=== PATIENT | male | born 1955 | race Caucasian/White ===

== ENCOUNTER → 2019-08-01 08:21 | Outpatient (BNVA) | payer BC, SELFPAY | PROVIDERS: Family Provider Family Medicine; PCP Family Medicine; Visit Provider Nurse Practitioner Family | DX: E78.5 Hyperlipidemia, unspecified (principal) | CPT/HCPCS: 80061; 80076; 84153 ==

== ENCOUNTER 2019-11-07 06:23 | Day surgery (SDC) | payer BC, SELFPAY ==
[2019-11-06 09:47] VITALS: BMI 30.2
[2019-11-07 06:35] VITALS: BP 138/88; PULSE 68; RESP 18; TEMP 36.2; O2SAT 96
[2019-11-07] MEDS: sodium chloride 0.9% 1,000 ML 30 ML IV (06:47)
--- NOTE | 2019-11-07 07:16 | ANES.PREANE2 ---
Pre-Anesthetic Assessment Pre-Anesthetic Assessment: Height/Weight: Height 1.75 m Weight 92.986 kg Temp Pulse Resp BP Pulse Ox 97.2 F L 68 18 138/88 96 11/07/19 06:35 11/07/19 06:35 11/07/19 06:35 11/07/19 06:35 11/07/19 06:35 Preop Diagnosis: Screening Proposed Procedure: Operation Date: 11/07/19 07:45 Proposed Procedures p [id number](Not Applicable) - Parish Michaels MD Was Beta Mal taken within 24 hours: Yes Last intake: Intake Last Liquid Date 11/06/19 Last Liquid Time 21:30 Last Solid Date 11/05/19 Social: Social History: No tobacco Exam: Pre-Anes Outpt Exam: alert, oriented x 3, clear to auscultation bilaterally and regular rate & rhythm Airway: Submandibular: WNL Cervical ROM: WNL MP: 2 Dentition: Full History/ROS: No significant history except as noted and No significant complaints Pulmonary: Pulmonary: SOB CV/HEM: CV/HEM: CAD and MA : : None reported Hepatic: Hepatic: None reported GI: GI: None reported Metabolic: Metabolic: None reported Musc/skel: Musc/skel: None reported Neuropsych: Neuropsych: None reported Anesthetic Plan: ASA status: 3 Anesthesia: Anesthesia Evaluation and MAC Risk of > 500 ml blood loss (7ml/kg in children): No Meds/Allergies Current Medications: Current Medications Generic Name Dose Route Start Last Admin Trade Name Freq PRN Reason Stop Dose Admin Sodium Chloride 1,000 mls @ 30 ml s/hr 11/07/19 06:30 11/07/19 06:47 Sodium Chloride 0.9% IV 11/08/19 06:29 30 mls/hr .Q24H ABDELRAHMAN Administration PFSH Anesthesia PFSH: Medical History (Updated 09/06/19 @ 06:52 by Parish Michaels MD) CAD (coronary artery disease) History of ST elevation myocardial infarction (STEMI) HTN (hypertension) Hyperlipidemia Surgical History Previous back surgery S/P cholecystectomy S/P PTCA (percutaneous transluminal coronary angioplasty) S/P shoulder surgery Left Family History Father S/P CABG (coronary artery bypass graft) Denies family history of Anesthesia complication Bleeding disorder Social History Smoking and tobacco status: former smoker Data Anesthesia Cardiac Studies: No Data to Display
--- NOTE | 2019-11-07 07:46 | W.PM.OPSFHP ---
Same Day Surgery H&P Indication for Procedure/HPI DATE OF PROCEDURE: November 07, 2019 CHIEF COMPLAINT/INDICATIONFOR SURGICAL PROCEDURE: colonoscopy PREOP DIAGNOSIS: Screening PLANNED PROCEDRUE: Operation Date: 11/07/19 07:45 Proposed Procedures p [id number]/Z12.11(Not Applicable) - Parish Michaels MD Medications/Allergies* Home Medications Medication Instructions Recorded Confirmed Type aspirin 81 mg tablet,delayed 81 mg PO DAILY 08/17/19 11/07/19 History release atorvastatin 80 mg tablet 80 mg PO DAILY 08/17/19 11/07/19 History metoprolol succinate 25 mg 12.5 mg PO DAILY 08/17/19 11/07/19 History tablet,extended release 24 hr Allergies/Adverse Reactions Allergy/AdvReac Type Severity Reaction Status Date / Time No Known Allergies Allergy Unverified 09/05/19 12:43 Current Medications: Generic Name Dose Route Start Last Admin Trade Name Freq PRN Reason Stop Dose Admin Sodium Chloride 1,000 mls @ 30 mls/hr 11/07/19 06:30 11/07/19 06:47 Sodium Chloride 0.9% IV 11/08/19 06:29 30 mls/hr .Q24H ABDELRAHMAN Administration Pertinent History/Comorbid Conditions* Medical History (Updated 09/06/19 @ 06:52 by Parish Michaels MD) CAD (coronary artery disease) History of ST elevation myocardial infarction (STEMI) HTN (hypertension) Hyperlipidemia Surgical History (Updated 09/05/19 @ 12:52 by Parish Michaels MD) Previous back surgery S/P cholecystectomy S/P PTCA (percutaneous transluminal coronary angioplasty) S/P shoulder surgery Left Family History (Updated 09/05/19 @ 12:44 by SHERWIN Salazar) S/P CABG (coronary artery bypass graft) Father Denies family history of Anesthesia complication Bleeding disorder Social History Smoking and tobacco status: former smoker Pertinent Exam Findings alert and oriented x 3 Recommendations Surgery/Procedure today Coding Level of Care Code Acute Watershed Program Manager for Patricia Mayorga
[2019-11-07 08:15] VITALS: BP 113/73; PULSE 83; RESP 18; TEMP 36.2; O2SAT 93
[2019-11-07 08:27] VITALS: BP 120/75; PULSE 79; RESP 18; O2SAT 94
[2019-11-07 08:37] VITALS: BP 109/66; PULSE 74; RESP 18; O2SAT 93
== END 2019-11-07 08:40 | disposition home or self-care (01) ==
PROVIDERS: PCP Nurse Practitioner Family; Visit Provider Surgery
PROC: 0DJD8ZZ Inspection of Lower Intestinal Tract, Via Natural or Artificial Opening Endoscopic (ICD-10-PCS; CPT 45378; principal; 2019-11-07 07:45)
DX: Z12.11 Encounter for screening for malignant neoplasm of colon (principal); D12.4 Benign neoplasm of descending colon; K64.8 Other hemorrhoids; Z79.82 Long term (current) use of aspirin; I25.10 Atherosclerotic heart disease of native coronary artery without angina pectoris; I10 Essential (primary) hypertension; E78.5 Hyperlipidemia, unspecified; Z87.891 Personal history of nicotine dependence; I25.2 Old myocardial infarction
CPT/HCPCS: 12345; 45380; 88305; J0171; J2704; J3490; J7030

== ENCOUNTER 2019-11-30 17:08 | Emergency (ER) | payer BC, SELFPAY ==
[2019-11-30 17:13] VITALS: BP 194/96; PULSE 71; RESP 14; TEMP 36.8; O2SAT 97; BMI 30.4
--- NOTE | 2019-11-30 19:30 | XRR_ITS ---
PROCEDURE INFORMATION: Exam: XR Chest, 1 View Exam date and time: 11/30/2019 7:45 PM Age: 64 years old Clinical indication: Chest pain; Type not specified; Prior surgery; Surgery type: Stents; Additional info: Chest pain x 2 weeks TECHNIQUE: Imaging protocol: XR of the chest Views: 1 view. COMPARISON: CR Chest 1 [place] [id number] 02/06/2018 5:20 AM FINDINGS: Lungs: Unremarkable. No consolidation. Pleural space: Unremarkable. No pleural effusion. No pneumothorax. Heart/Mediastinum: Unremarkable. No cardiomegaly. Bones/joints: Unremarkable. XR/XR chest 1V portable [id number] IMPRESSION: No acute findings.
--- NOTE | 2019-11-30 19:31 | ECG_ITS ---
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 Measurements Intervals [place] Rate: 63 P: 28 UT: 152 QRS: -7 QRSD: 91 T: 7 QT: 423 QTc: 434 Interpretive Statements SINUS RHYTHM Compared to ECG 11/30/2019 17:18:50 No significant changes Electronically Signed On 12-01-2019 19:04:06 CDT by Regina Howard M.D. [id number]
--- NOTE | 2019-11-30 20:14 | W.ED.CHESTPA ---
HPI - Chest Pain General: Chief Complaint: Chest Pain Stated Complaint: cp Time Seen by Provider: 11/30/19 19:56 History of Present Illness: HPI narrative: 64-year-old male comes in complaining of chest pain he states he has had intermittently for the last 2 weeks. He does not really notice any exacerbating or relieving factors. He got episodes last 2 to 3 minutes at a time he came in today because he was seen at his primary care doctor's office and a midlevel seen him he told him about the chest chest discomfort and they advised him to come in and be seen. He has not had any increasing level of symptoms is not been taking anything for it at home. He does have a history of coronary disease and had 2 overlapping stents placed in an ostial branch of the LAD a few years ago. He has not had any stress testing since then. 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 Onset (ago): week(s) (2 weeks) Timing of current episode: episodic Onset: during rest and during exertion Pain location: left chest Pain radiation: none Severity: moderate Quality: heaviness Relieving factors: nothing Exacerbating factors: nothing Associated symptoms: Reports no associated symptoms; Deny abdominal pain, dyspnea, fever(s), nausea or vomiting Treatment prior to arrival: aspirin Review of Systems Const: Denies: fever(s), chills, body aches, change in appetite, fatigue or malaise ENMT: Denies: throat pain, ear or mastoid pain, nasal discharge or nasal congestion Card: Denies: chest pain, edema, dyspnea on exertion or orthopnea Resp: Denies: dyspnea, productive cough or non-productive cough GI: Denies: abdominal pain, nausea, vomiting, hematemesis, coffee ground emesis, diarrhea, constipation, bloating, hematochezia or melena : Denies: flank pain, dysuria, urinary frequency or urinary urgency Skin/Breast: Denies: rash or pruritus PFSH ED PFSH: Medical History CAD (coronary artery disease) History of ST elevation myocardial infarction (STEMI) HTN (hypertension) Hyperlipidemia Surgical History History of colonoscopy with polypectomy (11/07/19) Previous back surgery S/P cholecystectomy S/P PTCA (percutaneous transluminal coronary angioplasty) S/P shoulder surgery Left Family History Father S/P CABG (coronary artery bypass graft) Denies family history of Anesthesia complication Bleeding disorder Social History Smoking and tobacco status: former smoker Physical Exam Const: COMMON NORMALS: no acute distress GENERAL APPEARANCE: cooperative and comfortable ORIENTATION/CONSCIOUSNESS: Yes awake, Yes oriented to person, Yes oriented to place and Yes oriented to time HENMT: COMMON NORMALS: normocephalic, atraumatic, hearing grossly normal bilaterally, external ears normal, EAC's normal, TM's normal bilaterally, Normal nasal mucous membranes and turbinates present, moist oral mucous membranes and oropharynx normal HEAD & SCALP: normocephalic and atraumatic NOSE: Normal nasal mucous membranes and turbinates present EXTERNAL EAR: Yes external ears normal EXTERNAL AUDITORY CANAL: EAC's normal TYMPANIC MEMBRANE: TM's normal bilaterally Eye: COMMON NORMALS: Equal, round and reactive pupils present, EOMs intact bilaterally, conjunctivae normal and no scleral icterus CONJUNCTIVA: Yes conjunctivae normal PUPIL: Yes Equal, round and reactive pupils present Neck/C-Spine: COMMON NORMALS: full ROM, no lymphadenopathy, supple and no JVD Lymph: LYMPHATIC: no lymphadenopathy noted and no lymphedema noted Resp: COMMON NORMALS: normal respiratory effort, No retractions, No use of accessory muscles and clear to auscultation bilaterally AUSCULTATION: clear to auscultation bilaterally Cardio: COMMON NORMALS: no JVD, regular rate, regular rhythm and No murmurs present (Cardio) RATE: regular rate RHYTHM: regular rhythm GI: COMMON NORMALS: Soft to palpation and No hepatosplenomegaly present AUSCULTATION: Yes normoactive bowel sounds PALPATION: Yes Soft to palpation, No Tenderness to palpation present (GI), No Guarding due to palpation present (GI) and Yes No hepatosplenomegaly present Extremity: COMMON NORMALS: normal to inspection, capillary refill normal, no clubbing, cyanosis or edema, no calf tenderness and no pedal edema Neuro: SENSORIUM/ORIENTATION: Yes oriented to person, Yes oriented to place and Yes oriented to time Skin: COMMON NORMALS: no rashes or lesions noted GENERAL SKIN EXAM: no rashes or lesions noted Course Vital Signs: Vital signs: Vital Signs Temperature 98.3 F 11/30/19 17:13 Pulse Rate 68 11/30/19 22:31 Respiratory Rate 18 11/30/19 22:31 Blood Pressure 145/84 11/30/19 22:31 Pulse Oximetry 96 11/30/19 22:31 MDM - Chest Pain MDM Narrative: Medical decision making narrative: Reviewed findings with the patient he would like to go home we will go ahead and discharge him home given sublingual nitro to use PRN continue his other medications including the aspirin. Will case management set up a sestamibi stress test. Lab Data: Labs: Lab Results 11/30/19 11/30/19 11/30/19 Range/Units 20:18 20:18 20:18 WBC 7.7 (4.0-10.0) 10^3/ uL RBC 5.01 (4.1-5.3) 10^6/u L Hgb 14.9 (11.7-16.6) g/dL Hct 45.0 (42.0-52.0) % MCV 89.8 (80-94) fL MCH 29.7 (28.0-34.0) pg MCHC 33.1 (30.0-36.0) g/dL RDW 13.3 (12.1-15.1) % Plt Count 337 (130-400) 10^3/c mm MPV 8.3 (7.4-10.4) fL Neut % (Auto) 52.1 % Lymph % (Auto) 35.3 % [place] % (Auto) 9.7 % Eos % (Auto) 1.8 % Baso % (Auto) 0.8 % Neut # (Auto) 3.99 (1.8-7.7) 10^3/u L Lymph # (Auto) 2.7 (0.8-4.8) 10^3/u L [place] # (Auto) 0.7 (0.2-0.9) 10^3/u L Eos # (Auto) 0.1 (0.0-0.8) 10^3/u L Baso # (Auto) 0.1 (0.0-0.1) 10^3/u L Nucleated RBC % (a uto) 0 % Nucleated RBCs # 0.0 /100WBC PT 12.80 (10.5-13.3) SECO NDS INR 0.94 (0.8-1.2) Sodium (136-145) mmol/L Potassium (3.5-5.1) mmol/L Chloride (98-107) mmol/L Carbon Dioxide (22-29) mmol/L Anion Gap (5-19) BUN (8-23) mg/dL Creatinine (0.7-1.2) mg/dL GFR Calculation (90-130) mL/min Glucose (65-115) mg/dL Calculated Osmolal ity (285-295) mOsm/k g Calcium (8.5-10.5) mg/dL Magnesium (1.7-2.3) mg/dL Total Bilirubin (0.15-1.2) mg/dL AST (0-40) U/L ALT (0-41) U/L Alkaline Phosphata se (40-130) IU/L Troponin T Baselin e (0-15) ng/L Troponin T 120 Min [place] (0-15) ng/L Delta Troponin T (0-10) ABS# Total Protein (6.6-8.7) g/dL Albumin (3.5-5.2) g/dL Globulin (1.3-4.6) g/dL Lipase (13-60) U/L H. pylori IgG Anti body Negative (Negative) 11/30/19 11/30/19 11/30/19 Range/Units 20:18 20:18 21:38 WBC (4.0-10.0) 10^3/ uL RBC (4.1-5.3) 10^6/u L Hgb (11.7-16.6) g/dL Hct (42.0-52.0) % MCV (80-94) fL MCH (28.0-34.0) pg MCHC (30.0-36.0) g/dL RDW (12.1-15.1) % Plt Count (130-400) 10^3/c mm MPV (7.4-10.4) fL Neut % (Auto) % Lymph % (Auto) % [place] % (Auto) % Eos % (Auto) % Baso % (Auto) % Neut # (Auto) (1.8-7.7) 10^3/u L Lymph # (Auto) (0.8-4.8) 10^3/u L [place] # (Auto) (0.2-0.9) 10^3/u L Eos # (Auto) (0.0-0.8) 10^3/u L Baso # (Auto) (0.0-0.1) 10^3/u L Nucleated RBC % (a uto) % Nucleated RBCs # /100WBC PT (10.5-13.3) SECO NDS INR (0.8-1.2) Sodium 139 (136-145) mmol/L Potassium 3.8 (3.5-5.1) mmol/L Chloride 103 (98-107) mmol/L Carbon Dioxide 25 (22-29) mmol/L Anion Gap 14.8 (5-19) BUN 9 (8-23) mg/dL Creatinine 1.1 (0.7-1.2) mg/dL GFR Calculation 67.4 L (90-130) mL/min Glucose 95 (65-115) mg/dL Calculated Osmolal ity 284 L (285-295) mOsm/k g Calcium 9.8 (8.5-10.5) mg/dL Magnesium 2.0 (1.7-2.3) mg/dL Total Bilirubin 0.5 (0.15-1.2) mg/dL AST 26 (0-40) U/L ALT 16 (0-41) U/L Alkaline Phosphata se 77 (40-130) IU/L Troponin T Baselin e 7 (0-15) ng/L Troponin T 120 Min [place] 8.02 (0-15) ng/L Delta Troponin T 1.02 (0-10) ABS# Total Protein 7.6 (6.6-8.7) g/dL Albumin 4.6 (3.5-5.2) g/dL Globulin 3.0 (1.3-4.6) g/dL Lipase 27 (13-60) U/L H. pylori IgG Anti body (Negative) Discharge Plan Discharge Patient Disposition: Home, Self-Care Clinical Impression: Atypical chest pain, CAD (coronary artery disease), HTN (hypertension) Condition: Stable Prescriptions: New nitroglycerin 0.4 mg tablet, sublingual 0.4 mg SUBLINGUAL Q5M PRN (Reason: chest pain) Qty: 30 RF: 0 No Action metoprolol succinate 25 mg tablet extended release 24 hr 12.5 mg PO BEDTIME RF: 0 aspirin [Adult Low Dose Aspirin] 81 mg tablet,delayed release (DR/EC) 81 mg PO BEDTIME RF: 0 Brilinta 90 mg tablet 90 mg PO BID 90 Days Qty: 180 RF: 3 Zetia 10 mg tablet 10 mg PO BEDTIME RF: 0 Discharge Orders: Discharge Order (Routine); Ordered 11/30/19 Ordered By: Robbin Richardson Referrals: Amanda Roberto ARNP [Primary Care Provider] - Discharge Diet: Usual diet Discharge Activity: Limit activity as instructed Activity Restrictions/Additional Instructions: Sublingual nitro as needed if you have more chest pain. Continue all other medications. Case management will call to set up a sestamibi stress test. Discharge Date/Time: 11/30/19 22:34 Coding Level of Care Code ED Metrologist for Patricia Fwtruong Exam Comprehensive
[2019-11-30 20:25] LABS: Basophils # 0.1 10^3/uL (0.0-0.1); Basophils % 0.8 %; Eosinophils # 0.1 10^3/uL (0.0-0.8); Eosinophils % 1.8 %; Hemoglobin 14.9 g/dL (11.7-16.6); Lymphocytes # 2.7 10^3/uL (0.8-4.8); Lymphocytes % 35.3 %; Mean Corpuscular HGB Conc 33.1 g/dL (30.0-36.0); Mean Corpuscular Hemoglobin 29.7 pg (28.0-34.0); Mean Corpuscular Volume 89.8 fL (80-94); Mean Platelet Volume 8.3 fL (7.4-10.4); Monocytes # 0.7 10^3/uL (0.2-0.9); Monocytes % 9.7 %; Neutrophils # 3.99 10^3/uL (1.8-7.7); Neutrophils % 52.1 %; Nucleated Red Blood Cells % 0 %; Platelet Count 337 10^3/cmm (130-400); Red Blood Count 5.01 10^6/uL (4.1-5.3); Red Cell Distribution Width 13.3 % (12.1-15.1); White Blood Count 7.7 10^3/uL (4.0-10.0)
[2019-11-30 21:04] LABS: H. Pylori IgG Antibody Negative (Negative)
[2019-11-30 21:25] LABS: Alanine Aminotransferase 16 U/L (0-41); Albumin Level 4.6 g/dL (3.5-5.2); Alkaline Phosphatase 77 IU/L (40-130); Anion Gap 14.8 (5-19); Aspartate Amino Transferase 26 U/L (0-40); Blood Urea Nitrogen 9 mg/dL (8-23); Calcium 9.8 mg/dL (8.5-10.5); Carbon Dioxide 25 mmol/L (22-29); Chloride 103 mmol/L (98-107); Glomerular Filtration Rate 67.4 mL/min (90-130); Glucose 95 mg/dL (65-115); Lipase 27 U/L (13-60); Osmolality Calculated 284 mOsm/kg (285-295); Potassium 3.8 mmol/L (3.5-5.1); Sodium 139 mmol/L (136-145); Total Bilirubin 0.5 mg/dL (0.15-1.2); Total Protein 7.6 g/dL (6.6-8.7)
[2019-11-30 21:28] LABS: Troponin(5th) Baseline 7 ng/L (0-15)
--- NOTE | 2019-11-30 21:31 | ECG_ITS ---
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 Measurements Intervals [place] Rate: 67 P: 27 MT: 158 QRS: -8 QRSD: 90 T: -5 QT: 389 QTc: 413 Interpretive Statements SINUS RHYTHM POSSIBLE OLD INFERIOR MYOCARDIAL INFARCTION Compared to ECG 02/07/2018 05:40:47 NO SIGNIFICANT CHANGE Electronically Signed On 11-30-2019 22:32:44 CDT by Adela John M.D. [id number]
--- NOTE | 2019-11-30 21:55 | PC.NURSE ---
EKG done at 2150 and shown to ER doctor
[2019-11-30 22:01] LABS: Troponin 5 2HR 8.02 ng/L (0-15); Troponin 5 2HR Delta 1.02 ABS# (0-10)
[2019-11-30 22:31] VITALS: BP 145/84; PULSE 68; RESP 18; O2SAT 96
[2019-11-30 22:35] LABS: INR 0.94 (0.8-1.2)
--- NOTE | 2019-12-01 13:07 | DCPLANNER ---
quality assurance project manager had message to schedule an outpatient stress test for patient. quality assurance project manager got order signed, faxed to centralized scheduling. quality assurance project manager will call for appointment information.
--- NOTE | 2019-12-04 14:25 | DCPLANNER ---
Patient has a stress test scheduled for Wednesday, December 13, 2019 at 9:15.
--- NOTE | 2019-12-14 12:24 | DCPLANNER ---
Stress test scheduled for patient for 12.13.19 has been cancelled.
== END 2019-11-30 22:34 | disposition home or self-care (01) ==
PROVIDERS: Emergency Medicine; Emergency Provider Family Medicine; PCP Nurse Practitioner Family
DX: R07.89 Other chest pain (principal); I25.10 Atherosclerotic heart disease of native coronary artery without angina pectoris; I10 Essential (primary) hypertension
CPT/HCPCS: 12345; 36415; 71045; 80053; 83690; 83735; 84484; 85025; 85610; 86677; 93005; 99282; 99284

== ENCOUNTER 2019-12-27 12:26 | Outpatient (CLI) | payer BC, SELFPAY ==
--- NOTE | 2019-12-27 12:35 | XR_ITS ---
WS: [id number] KNEE RIGHT TECHNIQUE: 3 views of the right knee CLINICAL INFORMATION: UNILATERAL PRIMARY OSTEOARTHRITIS R KNEE ALSO FOR MRI SH COMPARISON: None. FINDINGS: Normal anatomic aligned. No acute fractures. Hypertrophic patella. Hypertrophic spurring along the vidal perior margin of the patella. Medial and lateral joint compartments are well preserved XR/XR knee RT 3V* [id number] IMPRESSION: Mild degenerative arthritis with hypertrophic patella.
--- NOTE | 2019-12-27 12:35 | MR_ITS ---
WS: [id number] MRI RIGHT SHOULDER NONCONTRAST TECHNIQUE: Sagittal T2, coronal T1, T2 and proton density imaging. Axial gradient PDE imaging. CLINICAL INFORMATION: COMPLETE ROTATOR CUFF TEAR/RUPTURE ALSO FOR XRAY KN COMPARISON: None. FINDINGS: Mild degenerative arthritis at the AC joint with mild edema. Mild downsloping of the acromion with vidal bacromial spurring. Mild chronic thinning of the supraspinatus is intact. Tendinopathy supraspinatus. Normal infraspinatus. Normal teres minor. Subscapularis is normal. No full-thickness rotator cuff te ars. Normal biceps tendon in the bicipital groove. Normal glenoid labrum. Normal bone marrow signal. Intra -articular biceps tendon is normal. MR/MR shoulder RT wo con* [id number] IMPRESSION: 1. Mild degenerative arthritis AC joint with mild downsloping of the acromion. 2. Mild thinning of the supraspinatus with mild tendinopathy. No full-thicknes s rotator cuff tears. 3. Normal biceps tendon in the bicipital groove. 4. Grossly normal glenoid labrum.
== END 2019-12-27 12:27 | disposition home or self-care (01) ==
LOC: RADWPI 12:30
PROVIDERS: PCP Nurse Practitioner Family; Visit Provider Nurse Practitioner Family
DX: M17.11 Unilateral primary osteoarthritis, right knee (principal); M75.121 Complete rotator cuff tear or rupture of right shoulder, not specified as traumatic; M19.011 Primary osteoarthritis, right shoulder
CPT/HCPCS: 73221; 73562

== ENCOUNTER → 2020-02-05 13:09 | Outpatient (BNVA) | payer BC, SELFPAY | PROVIDERS: PCP Nurse Practitioner Family; Visit Provider Specialist | DX: M25.511 Pain in right shoulder (principal) | CPT/HCPCS: 73030 ==

== ENCOUNTER 2020-02-07 14:48 | Outpatient (CLI) | payer BC, SELFPAY ==
[2020-02-07 15:48] LABS: Estmated Average Glucose 111; Hemoglobin A1C 5.5 % (4.0-6.0)
[2020-02-07 16:48] LABS: Alanine Aminotransferase 19 U/L (0-41); Albumin Level 4.4 g/dL (3.5-5.2); Alkaline Phosphatase 74 IU/L (40-130); Anion Gap 17.7 (5-19); Aspartate Amino Transferase 21 U/L (0-40); Blood Urea Nitrogen 16 mg/dL (8-23); Calcium 9.6 mg/dL (8.5-10.5); Carbon Dioxide 21 mmol/L (22-29); Chloride 105 mmol/L (98-107); Glomerular Filtration Rate 55.6 mL/min (90-130); Glucose 116 mg/dL (65-115); Osmolality Calculated 292 mOsm/kg (285-295); Potassium 3.7 mmol/L (3.5-5.1); Sodium 140 mmol/L (136-145); Total Bilirubin 0.4 mg/dL (0.15-1.2); Total Protein 7.4 g/dL (6.6-8.7)
== END 2020-02-07 14:49 | disposition home or self-care (01) ==
LOC: LAB 14:50
PROVIDERS: PCP Nurse Practitioner Family; Visit Provider Nurse Practitioner Family
DX: I10 Essential (primary) hypertension (principal); Z13.1 Encounter for screening for diabetes mellitus; Z12.5 Encounter for screening for malignant neoplasm of prostate
CPT/HCPCS: 80053; 83036; 84153

== ENCOUNTER 2020-02-08 06:00 | Outpatient (RCR) | payer BC, SELFPAY | END 2020-02-21 23:59 | disposition home or self-care (01) | LOC: MPT 06:00 | PROVIDERS: PCP Nurse Practitioner Family; Referring Provider Specialist; Visit Provider Specialist | DX: M25.511 Pain in right shoulder (principal) | CPT/HCPCS: 97110; 97161 ==

== ENCOUNTER → 2020-06-03 15:43 | Outpatient (BNVA) | payer MEDICARE, SELFPAY | PROVIDERS: PCP Nurse Practitioner Family; Visit Provider Specialist | DX: M25.561 Pain in right knee (principal) | CPT/HCPCS: 73560; 73565 ==

== ENCOUNTER 2020-06-07 12:49 | Outpatient (CLI) | payer MEDICARE, SELFPAY ==
--- NOTE | 2020-06-07 13:45 | MR_ITS ---
WS: [id number] MRI RIGHT KNEE NONCONTRAST TECHNIQUE: Axial PD, coronal PD fat sat, coronal PD, sagittal PD, and sagittal PD fat-sat images obta ined. CLINICAL INFORMATION: M25.569 - Pain in unspecified knee COMPARISON: None. FINDINGS: Distal quadriceps and patella tendons are intact. Hypertrophic patella. Small suprapatellar effusion. Normal ACL and PCL. Intrasubstance signal abnormality involving the posterior horn medial meniscus a ppears chronic. No acute appearing meniscal tears. Moderate joint space narrowing involving the medial joint compartment. Moderate to advanced joint spa ce narrowing involving the lateral joint compartment. Subchondral edema involving the lateral tibial plateau. Moderate to advanced chondromalacia lateral joint compartment. Medial and lateral collateral ligaments are intact. Moderate chondromalacia patella. Normal popliteal fossa. MR/MR knee RT wo con* [id number] IMPRESSION: 1. Anterior and posterior cruciate ligaments are normal. 2. Chronic appearing intrasubstance signal abnormality involving the posterior horn medial meniscus. No acute appearing meniscal tears. 3. Near [id number] articulation in the lateral joint compartment with chondr omalacia and subchondral edema in the tibial plateau. 4. Medial and lateral collateral ligaments are intact. 5. Moderate chondromalacia patella. 6. Medial and lateral collateral ligaments are intact.
== END 2020-06-07 12:50 | disposition home or self-care (01) ==
LOC: RADSHAW 12:52
PROVIDERS: PCP Nurse Practitioner Family; Visit Provider Specialist
DX: M22.41 Chondromalacia patellae, right knee (principal)
CPT/HCPCS: 73721

== ENCOUNTER → 2020-10-14 08:22 | Outpatient (BNVA) | payer MEDICARE, SELFPAY | PROVIDERS: PCP Nurse Practitioner Family; Visit Provider Urology | DX: R97.20 Elevated prostate specific antigen [PSA] (principal); Z87.898 Personal history of other specified conditions; Z80.42 Family history of malignant neoplasm of prostate | CPT/HCPCS: 81003; 84153 ==

== ENCOUNTER → 2021-01-14 15:18 | Outpatient (BNVA) | payer MEDICARE, SELFPAY | PROVIDERS: PCP Nurse Practitioner Family; Visit Provider Urology | DX: R97.20 Elevated prostate specific antigen [PSA] (principal); Z80.42 Family history of malignant neoplasm of prostate | CPT/HCPCS: 81003 ==

== ENCOUNTER 2021-06-12 07:32 | Outpatient (CLI) | payer MEDICARE, SELFPAY ==
[2021-06-10 10:07] LABS: Basophils # 0.1 10^3/uL (0.0-0.1); Basophils % 0.9 %; Eosinophils # 0.3 10^3/uL (0.0-0.8); Eosinophils % 4.5 %; Hematocrit 42.9 % (42.0-52.0); Hemoglobin 14.4 g/dL (11.7-16.6); Lymphocytes # 2.1 10^3/uL (0.8-4.8); Mean Corpuscular HGB Conc 33.6 g/dL (30.0-36.0); Mean Corpuscular Hemoglobin 30.6 pg (28.0-34.0); Mean Corpuscular Volume 91.3 fl (80-94); Mean Platelet Volume 8.3 fL (7.4-10.4); Monocytes # 0.7 10^3/uL (0.2-0.9); Monocytes % 11.3 %; Neutrophils # 2.63 10^3/uL (1.8-7.7); Nucleated Red Blood Cells % 0 %; Platelet Count 313 10^3/cmm (130-400); Red Cell Distribution Width 13.8 % (12.1-15.1); White Blood Count 5.7 10^3/uL (4.0-10.0)
[2021-06-10 10:19] LABS: INR 0.95 (0.83-1.21); Prothrombin Time (Patient) 12.9 Seconds (12.0-15.1)
[2021-06-10 10:23] LABS: Anion Gap 15.5 (5-19); Blood Urea Nitrogen 10 mg/dL (8-23); Calcium 8.8 mg/dL (8.5-10.5); Carbon Dioxide 22 mmol/L (22-29); Chloride 104 mmol/L (98-107); Glucose 98 mg/dL (65-115); Osmolality Calculated 285 mOsm/kg (285-295); Potassium 3.5 mmol/L (3.5-5.1); Sodium 138 mmol/L (136-145)
[2021-06-10 11:52] LABS: Adenovirus Not Detected (NOT DETECT); Chlamydia Pneumoniae Not Detected (NOT DETECT); Coronavirus 229E,HKU1,NL63,OC4 Not Detected (NOT DETECT); Human Metapneumovirus Not Detected (NOT DETECT); Human Rhinovirus/Enterovirus Not Detected (NOT DETECT); Influenza A Not Detected (NOT DETECT); Influenza A H1 Not Detected (NOT DETECT); Influenza A H1-2009 Not Detected (NOT DETECT); Influenza A H3 Not Detected (NOT DETECT); Influenza B Not Detected (NOT DETECT); Mycoplasma Pneumoniae Not Detected (NOT DETECT); Parainfluenza Virus Type 1 Not Detected (NOT DETECT); Parainfluenza Virus Type 2 Not Detected (NOT DETECT); Parainfluenza Virus Type 3 Not Detected (NOT DETECT); Parainfluenza Virus Type 4 Not Detected (NOT DETECT); Respiratory Syncytial Virus A Not Detected (NOT DETECT); Respiratory Syncytial Virus B Not Detected (NOT DETECT); SARS-COV-2 Not Detected (NOT DETECT)
[2021-06-12] VITALS (15 sets, daily range): BP systolic 88–151; BP diastolic 54–83; PULSE 62–75; RESP 14–20; TEMP 36.8; O2SAT 95–99; BMI 32.9
--- NOTE | 2021-06-12 07:30 | XACV_ITS ---
Ht: 175 cm Wt: 101 kg BSA: 2.25 m2 Gender: Male : 1955 Any Known Allergies: Other Exam Priority: Routine Procedure(s): Procedure Description: Diagnostic procedure Procedure Description: Coronary Angiography Procedure Description: Pressure Wire Anita POTTS; Diagnostic Cath Status: Elective Diagnostic Findings * Left Main has no disease. * Circumflex has no disease. * Mid Left Anterior Descending: moderate 50% stenosis, CLYDE: 3 flow. * Proximal Right Coronary Artery: obstructive 60% stenosis, CLYDE: 3 flow, iFR performed: ratio is 0.95. * Coronary angiography shows right dominance. Conclusions 1. I 2. FR: After equalizing the distal and proximal pressure of 3. I 4. FR wire proximal to the lesion 5. in RCA 6. , 7. proximal 8. RCA 9. lesion was crossed with 10. I 11. FR wire. 12. Spot 13. I 14. FR was recorded as 0.95, which is not significant 15. . 16. There is obstructive coronary artery disease with two vessel disease. Recommendations * Continue current medical management and risk factor modification. Diagnostic RX Recommendation: medical therapy and/or counseling Pressures Phase:Rest AO : 127 / 90 ( 107 ) @ 7:07:00 AM 142 / 82 ( 106 ) @ 7:25:00 AM Clinical Evaluation EBL: 5mL-10mL Procedural Details Procedure Consent Obtained. Pre-Procedure Time Out. Identified patient by full name and date of as verbalized by the patient/guarantor. Does the consent match the physician's order: Yes. Accurate & Complete Informed Consent: Yes. Inpatient/Outpatient History & Physical on Chart: Yes. If H&P is completed, is and addenduem needed: No; If yes, is the addendum complete: N/A. Visualize and Verify Site with Patient/Guarantor: N/A. Relevant Radiology Images available: N/A. Pre-op teaching completed and patient verbalized understanding. The risks, benefits, and alternatives of sedation and/or procedure were discussed by physician. The patient agrees to continue. Equipment: 6F - Radial. Cardiac Cath Pack. ACIST Manifold Kit Model BT 2000. Heparinized Saline (2 units/mL), 1000 mL bag. Physician arrived. Procedure started. [facility] Clinical Fraility Score: 3: Managing Well. 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 Chest Pain Symptom Assessment: Typical Angina Symptoms. Cardiovascular Instability: No. Correct patient, site and procedure confirmed by cath team. PERRLA. 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 Lungs clear x 5 lobes. IV Site on Arrival: 18 gauge in the right anticubital. IV Fluids: 0.9% NaCl at KVO. 0 mL infused prior to slabbing machine operator. Pre Procedural Pulses: bilateral dorsalis pedis was 3+. Pre Procedural Pulses: bilateral posterior tibial was 3+. Pre Procedural Pulses: bilateral radial was 3+. Oxygen started at 2liters/min via nasal canula. Luis Gardner will be health record technician for procedure. right groin was prepped with chloroprep then draped in the usual sterile fashion. right radial was prepped with chloroprep then draped in the usual sterile fashion. Baseline sample Acquired. HR: [address] John will be scrubbing in to assist with procedure. Dr John scrubbed in. Immediate Pre-Procedure Time Out. Correct Patient: Yes; Correct Procedure: Yes; Correct Site: Yes; Correct Patient Position: Yes; Correct Supplies: Yes; Dried Flammable Prep: Yes; Blood Products Available: N/A;. Lidocaine 1% infiltrated to the right radial by Dr John. Arterial access obtained. Dr Howard scrubbed in. A 5 russian Tim catheter in over wire. Catheter out. A 5 russian TIG catheter in over wire. Multiple views taken of left coronary artery. Catheter redirected to the RCA. Inventory is CRD 6FR JR 4 GUIDE 100cm. 6 russian JR 4 guide catheter was inserted over the wire. Osei OmniWire guidewire was advanced through the guide catheter to lesion in the prox RCA. IFR measurements obtained. 0.95. Wire out. Guide catheter out. Physicians scrubbed out. A TR Band was successful obtaining hemostatsis at the Right Radial artery insertion site. TR band placed. Hemostasis obtained. Post-op diagnosis: patent stents, non obstructive CAD. Post Procedure: Pulses reassessed and unchanged. PERRLA. 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 No VTE prophylaxis required. Medication's Wasted: Lidocaine 1% = 18 mL. Medication's Wasted: Nitro = 49.8 mg. Medication's Wasted: Heparin = 3000 units. Total IV fluids: 100 mL. Contrast type used: Omnipaque 300 mgI/mL, 500 mL bottle. Complications: none. Estimated blood loss: 5mL-10mL. Responsiveness - Normal response to verbal stimuli; alert and oriented, PERRLA. Airway - Unaffected, no intervention required; spontaneous ventilation. Circulation: W/N/L, pulses unchanged. Nausea/Vomiting: Yes. Procedure completed. Patient transferred by wheelchair to CPRU. Vital chart was stopped. Access Site Site: Right Radial artery Sheath Size: 6 Fr Hemostasis Method: TR Band Hemostasis Success: Successful Procedure Medications Start: 8:49 AM Stop: 8:49 AM Medication: Versed Amount: 1 mg Route: I.V. Start: 8:49 AM Stop: 8:49 AM Medication: Fentanyl Amount: 50 mcg Route: I.V. Start: 8:53 AM Stop: 8:53 AM Medication: Versed Amount: 1 mg Route: I.V. Start: 8:53 AM Stop: 8:53 AM Medication: Fentanyl Amount: 50 mcg Route: I.V. Start: 8:56 AM Stop: 8:56 AM Medication: Versed Amount: 1 mg Route: I.V. Start: 8:56 AM Stop: 8:56 AM Medication: Fentanyl Amount: 50 mcg Route: I.V. Start: 9:01 AM Stop: 9:01 AM Medication: Nitrogylcerin Amount: 200 mcg Route: I.A. Start: 9:13 AM Stop: 9:13 AM Medication: Heparin Amount: 5000 units Route: I.V. Start: 9:26 AM Stop: 9:26 AM Medication: Heparin Amount: 3000 units Route: I.V. Start: 9:33 AM Stop: 9:33 AM Medication: Versed Amount: 1 mg Route: I.V. Start: 9:33 AM Stop: 9:33 AM Medication: Fentanyl Amount: 50 mcg Route: I.V. I, the attending physician, have reviewed and verified all procedure medications. Yes, all medications given per verbal order History/Risk Factors Hypertension: Yes Dyslipidemia: Yes Peripheral Arterial Disease (PAD): No Myocardial Infarction (HI): Yes Obesity: Yes Renal Disease: No Prior Interventions PCI: Yes CABG: No Valve Surgery: No Date of PCI: 02/06/2018 Report Signatures Finalized by Regina Howard MD on 06/25/2021 05:27 PM
[2021-06-12] MEDS: diphenhydrAMINE 50 mg Capsule PO (07:45)
--- NOTE | 2021-06-12 09:53 | W.PM.OPSUD ---
Surgery/Procedure H&P Update DATE OF PROCEDURE: June 12, 2021 DATE H&P PERFORMED: 06/04/21 H&P UPDATE INFORMATION: I have reviewed H&P completed within last 30 days, I have examined patient prior to procedure and No changes to prior documentation PREOP DIAGNOSIS: Chest pain PLANNED PROCEDURE: Operation Date: 06/12/21 08:30 Proposed Procedures p Cardiac Catheterization(Left) - Regina Howard MD PATIENT REASSESSED PRIOR TO SEDATION, WITH NO CHANGE NOTED: Yes PHYSICAL EXAM: alert, oriented x 3 and clear to auscultation bilaterally AIRWAY EVAL/ANESTHESIA PLAN: ASA II and Risks, benefits & alternatives of sedation and/or procedure discussed
--- NOTE | 2021-06-12 11:00 | PC.NURSE ---
recovery note received pt from slab worker post diagnostic [facility]. pt alert and oriented x3. tr band in place on right wrist. dry and intact. pt educated on restrictions of right wrist and acknowledged understanding. at beside and also acknowledged understanding. pt will be educated throughout recovery as well. pt placed on monitor and will be watched per protocol. pt complains of no pain.
== END 2021-06-12 13:31 | disposition home or self-care (01) ==
PROVIDERS: PCP Nurse Practitioner Family; Visit Provider Internal Medicine Cardiovascular Disease
DX: I25.110 Atherosclerotic heart disease of native coronary artery with unstable angina pectoris (principal); I25.2 Old myocardial infarction; E78.5 Hyperlipidemia, unspecified; I10 Essential (primary) hypertension; Z79.82 Long term (current) use of aspirin; Z80.9 Family history of malignant neoplasm, unspecified; Z82.49 Family history of ischemic heart disease and other diseases of the circulatory system; E66.9 Obesity, unspecified; Z68.32 Body mass index [BMI] 32.0-32.9, adult
CPT/HCPCS: 36415; 80048; 85025; 85610; 87635; 93452; 93454; 93458; C1769; C1887; C1894; J1644; J2250; J3010; J3490; J7030; Q0163; Q9967

== ENCOUNTER 2021-07-18 09:55 | Emergency (ER) | payer MEDICARE, OTHER, SELFPAY ==
[2021-07-18] VITALS (7 sets, daily range): BP systolic 111–131; BP diastolic 60–86; PULSE 57–89; RESP 14–16; TEMP 37.1; O2SAT 96–99; BMI 32.5
--- NOTE | 2021-07-18 10:04 | XR_ITS ---
WS: [id number] Exam: XR chest 1V portable [id number] Date/Time of Exam: 07/18/2021 10:05 AM Reason For Exam: dyspnea/cough Comparison 11/30/2019. Findings: The lungs are clear and fully expanded. Costophrenic angles are sharp. No infiltrates. Bronchovascula r relief appears normal. Cardiac silhouette is unremarkable. Bony elements are intact. XR/XR chest 1V portable [id number] IMPRESSION: Unremarkable chest radiograph.
--- NOTE | 2021-07-18 10:04 | ECG_ITS ---
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 Measurements Intervals [place] Rate: 68 P: 40 [place]: 140 QRS: 10 QRSD: 100 T: 48 QT: 407 QTc: 436 Interpretive Statements SINUS RHYTHM Compared to ECG 11/30/2019 22:00:06 No significant changes Electronically Signed On 07-18-2021 12:27:39 TECHNICAL REP by Trev Gonzalez M.D. [id number]
--- NOTE | 2021-07-18 10:25 | W.ED.SYNCOPE ---
HPI - Syncope General: Chief Complaint: Syncope Stated Complaint: SYNCOPE Time Seen by Provider: 07/18/21 10:03 History of Present Illness: 66-year-old male presents emergency room after near syncopal episode at home. Around 830 he felt like he was going to pass out but he never actually did pass that there a few hours later he had gotten up to go to the bathroom and started walking dilated head and dizzy stopped at the sink and then actually did pass out he went to sit down again his reports his eyes rolled back in his head. 2 weeks ago he had an angiogram done he is a known history of heart disease had been having chest pain they did an angiogram and is reported to him as normal it was done at our facility. He has a known history of heart disease and has previously had 2 stents has not had any chest pain recently. He was recently diagnosed with influenza at [facility] and was watched overnight at one point. That also tested for Covid which was negative. His symptoms generally are improving and his fevers resolved his first onset of symptoms for flu was about 9 to 10 days ago. He denies any dysuria urgency or frequency. In general he feels weak but has no other symptoms at this time. He did not have any tonic-clonic movements and is not postictal. MD complaint: loss of consciousness and collapsed Onset (ago): minute(s) Associated symptoms: Deny abdominal pain, chest pain, fever(s) or nausea Review of Systems Const: Reports: chills, body aches, fatigue and malaise; Denies: fever(s) ENMT: Denies: throat pain, ear or mastoid pain, nasal discharge or nasal congestion Card: Denies: chest pain, edema, dyspnea on exertion or orthopnea Resp: Denies: dyspnea, productive cough or non-productive cough GI: Denies: abdominal pain, nausea, vomiting, hematemesis, coffee ground emesis, diarrhea, constipation, bloating, hematochezia or melena : Denies: flank pain, dysuria, urinary frequency or urinary urgency Skin/Breast: Denies: rash or pruritus [facility] ED PFSH: Medical History CAD (coronary artery disease) Elevated PSA Family history of prostate cancer History of ST elevation myocardial infarction (STEMI) HTN (hypertension) Hyperlipidemia Surgical History History of colonoscopy with polypectomy (11/07/19) Previous back surgery S/P cholecystectomy S/P PTCA (percutaneous transluminal coronary angioplasty) S/P shoulder surgery Left Family History Father S/P CABG (coronary artery bypass graft) Mother Arthritis Social History Smoking and tobacco status: never smoked Alcohol intake: current Alcohol intake frequency: few times a week Marital status: Current occupational status: retired History of recent travel: No Physical Exam Const: COMMON NORMALS: no acute distress GENERAL APPEARANCE: cooperative and comfortable ORIENTATION/CONSCIOUSNESS: Yes awake, Yes oriented to person, Yes oriented to place and Yes oriented to time HENMT: COMMON NORMALS: normocephalic, atraumatic and hearing grossly normal bilaterally HEAD & SCALP: normocephalic and atraumatic Neck/C-Spine: COMMON NORMALS: no JVD Resp: COMMON NORMALS: normal respiratory effort, No retractions, No use of accessory muscles and clear to auscultation bilaterally AUSCULTATION: clear to auscultation bilaterally Cardio: COMMON NORMALS: no JVD, regular rate, regular rhythm and No murmurs present (Cardio) RATE: regular rate RHYTHM: regular rhythm GI: COMMON NORMALS: Soft to palpation and No hepatosplenomegaly present AUSCULTATION: Yes normoactive bowel sounds PALPATION: Yes Soft to palpation, No Tenderness to palpation present (GI), No Guarding due to palpation present (GI) and Yes No hepatosplenomegaly present Extremity: COMMON NORMALS: normal to inspection, capillary refill normal, no clubbing, cyanosis or edema, no calf tenderness and no pedal edema Neuro: SENSORIUM/ORIENTATION: Yes oriented to person, Yes oriented to place and Yes oriented to time Skin: COMMON NORMALS: no rashes or lesions noted GENERAL SKIN EXAM: no rashes or lesions noted Course Vital Signs: Vital signs: Vital Signs Temperature 98.7 F 07/18/21 10:04 Pulse Rate 65 07/18/21 14:32 Respiratory Rate 16 07/18/21 14:32 Blood Pressure 124/67 07/18/21 14:32 Pulse Oximetry 97 07/18/21 14:32 MDM - Syncope Medical Decision Making Patient relates he been seen at [facility] they put him on Levaquin because he had a early positive on his blood cultures but was told they thought it may be a contaminant is not heard the final result yet. Labs here are unremarkable. White count is normal his troponins are normal EKGs do not show anything acute. 4 weeks ago patient had a angiogram that did not show any significant disease. He does have some mild coronary disease but they were treating medically. There is no mention of any valvular disease and a previous echo he had no valvular disease. We will go ahead and discharge patient home sounds like he had a syncopal episode after standing and walking to go to the bathroom. There is does not sound like he had a seizure and he was not postictal. Follow-up with his primary care follow-up with [facility] on the blood cultures. Medical Records I reviewed the patient's medical records. Lab Data I reviewed the patient's lab results. : 07/18/21 10:36 07/18/21 10:36 Radiology Impressions Chest X-Ray 07/18/21 10:04 IMPRESSION: Unremarkable chest radiograph. Laboratory Results WBC 9.6 10^3/uL (4.0-10.0) 07/18/21 10:36 RBC 5.10 10^6/uL (4.1-5.3) 07/18/21 10:36 Hgb 15.3 g/dL (11.7-16.6) 07/18/21 10:36 Hct 44.2 % (42.0-52.0) 07/18/21 10:36 MCV 86.7 fl (80-94) 07/18/21 10:36 MCH 30.0 pg (28.0-34.0) 07/18/21 10:36 MCHC 34.6 g/dL (30.0-36.0) 07/18/21 10:36 RDW 13.1 % (12.1-15.1) 07/18/21 10:36 Plt Count 372 10^3/cmm (130-400) 07/18/21 10:36 MPV 8.1 fL (7.4-10.4) 07/18/21 10:36 Neut % (Auto) 70.7 % 07/18/21 10:36 Lymph % (Auto) 19.6 % 07/18/21 10:36 [place] % (Auto) 8.1 % 07/18/21 10:36 Eos % (Auto) 0.8 % 07/18/21 10:36 Baso % (Auto) 0.3 % 07/18/21 10:36 Neut # (Auto) 6.76 10^3/uL (1.8-7.7) 07/18/21 10:36 Lymph # (Auto) 1.9 10^3/uL (0.8-4.8) 07/18/21 10:36 [place] # (Auto) 0.8 10^3/uL (0.2-0.9) 07/18/21 10:36 Eos # (Auto) 0.1 10^3/uL (0.0-0.8) 07/18/21 10:36 Baso # (Auto) 0.0 10^3/uL (0.0-0.1) 07/18/21 10:36 Nucleated RBC % (auto) 0 % 07/18/21 10:36 Nucleated RBCs # 0.0 /100WBC 07/18/21 10:36 Sodium 134 mmol/L (136-145) L 07/18/21 10:36 Potassium 3.9 mmol/L (3.5-5.1) 07/18/21 10:36 Chloride 102 mmol/L (98-107) 07/18/21 10:36 Carbon Dioxide 22 mmol/L (22-29) 07/18/21 10:36 Anion Gap 13.9 (5-19) 07/18/21 10:36 BUN 14 mg/dL (8-23) 07/18/21 10:36 Creatinine 1.3 mg/dL (0.7-1.2) H 07/18/21 10:36 GFR Calculation 55.2 mL/min (90-130) L 07/18/21 10:36 Glucose 127 mg/dL (65-115) H 07/18/21 10:36 Calculated Osmolality 280 mOsm/kg (285-295) L 07/18/21 10:36 Calcium 9.3 mg/dL (8.5-10.5) 07/18/21 10:36 Total Bilirubin 0.6 mg/dL (0.15-1.2) 07/18/21 10:36 AST 27 U/L (0-40) 07/18/21 10:36 ALT 20 U/L (0-41) 07/18/21 10:36 Alkaline Phosphatase 85 IU/L (40-130) 07/18/21 10:36 Creatine Kinase 61 U/L (39-308) 07/18/21 10:36 Troponin T Baseline 11 ng/L (0-15) 07/18/21 10:36 Troponin T 120 Minute 9.98 ng/L (0-15) 07/18/21 12:06 Delta Troponin T -1.02 ABS# (0-10) L 07/18/21 12:06 Total Protein 7.0 g/dL (6.6-8.7) 07/18/21 10:36 Albumin 4.1 g/dL (3.5-5.2) 07/18/21 10:36 Globulin 2.9 g/dL (1.3-4.6) 07/18/21 10:36 Urine Color Dark yellow (Yellow) 07/18/21 11:22 Urine Appearance Clear (CLEAR) 07/18/21 11:22 Urine pH 6 (5-7) 07/18/21 11:22 Ur Specific [place] 1.020 (1.005-1.030) 07/18/21 11:22 Urine Protein Trace (Negative) 07/18/21 11:22 Urine Glucose (UA) Norm (Normal) 07/18/21 11:22 Urine Ketones 1+ (Negative) H 07/18/21 11:22 Urine Blood Neg (Negative) 07/18/21 11:22 Urine Nitrate Negative (Negative) 07/18/21 11:22 Urine Bilirubin 1+ (Negative) H 07/18/21 11:22 Urine Urobilinogen 1 mg/dL (Negative) H 07/18/21 11:22 Ur Leukocyte Esterase Negative (Negative) 07/18/21 11:22 Urine RBC 0-4 /hpf (0-2) H 07/18/21 11:22 Urine WBC 0-4 /hpf (0-5) H 07/18/21 11:22 Ur Squamous Epith Cells Rare /hpf (0-5) 07/18/21 11:22 Amorphous Sediment Not Reportable 07/18/21 11:22 Urine Bacteria None /hpf (NONE) 07/18/21 11:22 Urine Mucus 4+ /hpf 07/18/21 11:22 Discharge Plan Discharge Patient Disposition: Home Clinical Impression: Syncope Condition: Stable Prescriptions: No Action Repatha SureClick 140 mg/mL pen injector 140 mg SUBCUT .x7xigop 0RF aspirin [Adult Low Dose Aspirin] 81 mg tablet,delayed release (DR/EC) 81 mg PO BEDTIME Qty: 90 3RF metoprolol succinate 25 mg tablet extended release 24 hr 12.5 mg PO BEDTIME Qty: 45 3RF nitroglycerin 0.4 mg tablet, sublingual 0.4 mg SUBLINGUAL Q5M PRN (Reason: chest pain) Qty: 25 6RF Rx Instructions: do not exceed 3 doses per episode Brilinta 90 mg tablet 90 mg PO BID Qty: 180 3RF Zyrtec 10 mg tablet 10 mg PO DAILY PRN (Reason: Allergy Symptoms) 0RF ondansetron HCl 4 mg tablet 4 mg PO Q4H PRN (Reason: Nausea And Vomiting) 0RF guaifenesin 100 mg/5 mL liquid 200 mg PO Q4H PRN (Reason: Cough) 0RF oseltamivir 75 mg capsule 75 mg PO BID 0RF Rx Instructions: rx filled 07/14/21 5d/s levofloxacin 500 mg tablet 500 mg PO DAILY 0RF Rx Instructions: rx filled 07/14/21 6d/s albuterol sulfate 90 mcg/actuation HFA aerosol inhaler 1 - 2 puff INHALATION Q6H PRN (Reason: Wheezing) 0RF Flonase Allergy Relief 50 mcg/actuation spray,suspension 1 spray INTRANASAL DAILY PRN (Reason: Allergy Symptoms) 0RF isosorbide mononitrate 30 mg tablet extended release 24 hr 30 mg PO QAM 0RF Discharge Orders: Discharge ED (Routine); Ordered 07/18/21 Ordered By: Robbin Richardson Referrals: Hui Zavala FNP [Primary Care Provider] - Discharge Diet: Usual diet Discharge Activity: Limit activity as instructed Patient Instructions: Opioid Safety Activity Restrictions/Additional Instructions: Limit exertional activity continue current medications follow-up with your primary care doctor within the next week. Coding Level of Care Code ED Rug Inspector for Channingg Fwd Exam Comprehensive
[2021-07-18 10:42] LABS: Basophils % 0.3 %; Eosinophils # 0.1 10^3/uL (0.0-0.8); Eosinophils % 0.8 %; Hematocrit 44.2 % (42.0-52.0); Hemoglobin 15.3 g/dL (11.7-16.6); Lymphocytes # 1.9 10^3/uL (0.8-4.8); Lymphocytes % 19.6 %; Mean Corpuscular HGB Conc 34.6 g/dL (30.0-36.0); Mean Corpuscular Volume 86.7 fl (80-94); Mean Platelet Volume 8.1 fL (7.4-10.4); Monocytes # 0.8 10^3/uL (0.2-0.9); Monocytes % 8.1 %; Neutrophils # 6.76 10^3/uL (1.8-7.7); Neutrophils % 70.7 %; Nucleated Red Blood Cells % 0 %; Platelet Count 372 10^3/cmm (130-400); Red Cell Distribution Width 13.1 % (12.1-15.1); White Blood Count 9.6 10^3/uL (4.0-10.0)
[2021-07-18 11:02] LABS: Alanine Aminotransferase 20 U/L (0-41); Albumin Level 4.1 g/dL (3.5-5.2); Alkaline Phosphatase 85 IU/L (40-130); Anion Gap 13.9 (5-19); Aspartate Amino Transferase 27 U/L (0-40); Blood Urea Nitrogen 14 mg/dL (8-23); Calcium 9.3 mg/dL (8.5-10.5); Carbon Dioxide 22 mmol/L (22-29); Chloride 102 mmol/L (98-107); Creatine Phosphokinase 61 U/L (39-308); Globulin 2.9 g/dL (1.3-4.6); Glomerular Filtration Rate 55.2 mL/min (90-130); Glucose 127 mg/dL (65-115); Osmolality Calculated 280 mOsm/kg (285-295); Potassium 3.9 mmol/L (3.5-5.1); Sodium 134 mmol/L (136-145); Total Bilirubin 0.6 mg/dL (0.15-1.2)
[2021-07-18 11:07] LABS: Troponin(5th) Baseline 11 ng/L (0-15)
[2021-07-18 11:59] LABS: Add Urine Microscopic? YES; Bilirubin Urine 1+ (Negative); Blood Urine Neg (Negative); Glucose Urine UA Norm (Normal); Ketones Urine 1+ (Negative); Leukocyte Esterase Urine Negative (Negative); Nitrate Urine Negative (Negative); Protein Urine Trace (Negative); Urine Appearance Clear (CLEAR); Urine Color Dark Yellow (Yellow); Urobilinogen Urine 1 mg/dL (Negative); pH Urine 6 (5-7)
[2021-07-18 12:00] LABS: Add Urine Culture? No; Mucus Urine 4+ /hpf; RBC Urine 0-4 /hpf (0-2); Squamous Epithelial Cell Urine RARE /hpf (0-5); WBC Urine 0-4 /hpf (0-5)
--- NOTE | 2021-07-18 12:04 | ECG_ITS ---
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 Measurements Intervals [place] Rate: 64 P: 34 [place]: 144 QRS: 25 QRSD: 104 T: 44 QT: 429 QTc: 443 Interpretive Statements SINUS RHYTHM POSSIBLE INFERIOR MYOCARDIAL INFARCTION , PROBABLY OLD [30 ms Q WAVE IN II/aVF] Compared to ECG 07/18/2021 10:15:23 Myocardial infarct finding now present Electronically Signed On 07-18-2021 12:33:06 GUSSET MAKER by Trev Gonzalez M.D. [id number]
[2021-07-18] MEDS: lidocaine 2% viscous 15 ML, aluminum-mag hydrox-simethicon 30 ML, sucralfate oral liq 1 GM PO (12:09)
[2021-07-18] MEDS: lactated ringers 1,000 ML 999 ML IV (12:12)
[2021-07-18 12:34] LABS: Troponin 5 2HR 9.98 ng/L (0-15)
[2021-07-18 13:14] LABS: Troponin 5 2HR Delta -1.02 ABS# (0-10)
== END 2021-07-18 13:46 | disposition home or self-care (01) ==
PROVIDERS: Emergency Provider Family Medicine; PCP Nurse Practitioner Family
DX: R55 Syncope and collapse (principal); Z79.82 Long term (current) use of aspirin; I25.10 Atherosclerotic heart disease of native coronary artery without angina pectoris; I25.2 Old myocardial infarction; I10 Essential (primary) hypertension; E78.5 Hyperlipidemia, unspecified
CPT/HCPCS: 71045; 80053; 81001; 82550; 84484; 85025; 93005; 96360; 99284

== ENCOUNTER → 2021-11-05 10:59 | Outpatient (BNVA) | payer MEDICARE, SELFPAY | PROVIDERS: PCP Nurse Practitioner Family; Visit Provider Internal Medicine Cardiovascular Disease | DX: I25.10 Atherosclerotic heart disease of native coronary artery without angina pectoris (principal); I10 Essential (primary) hypertension; E78.49 Other hyperlipidemia; R97.20 Elevated prostate specific antigen [PSA]; R94.31 Abnormal electrocardiogram [ECG] [EKG]; Z87.891 Personal history of nicotine dependence | CPT/HCPCS: 93005; 99214 ==

== ENCOUNTER → 2022-03-05 09:17 | Outpatient (BNVA) | payer MEDICARE, OTHER, SELFPAY | PROVIDERS: PCP Nurse Practitioner Family; Visit Provider Specialist | DX: M17.11 Unilateral primary osteoarthritis, right knee (principal); Z71.89 Other specified counseling | CPT/HCPCS: 20610; J7326 ==

== ENCOUNTER → 2022-10-01 09:05 | Outpatient (BNVA) | payer MEDICARE, OTHER, SELFPAY | PROVIDERS: PCP Nurse Practitioner Family; Visit Provider Specialist | DX: M17.11 Unilateral primary osteoarthritis, right knee (principal) | CPT/HCPCS: 20610; J7326 ==

== ENCOUNTER → 2022-11-11 15:18 | Outpatient (BNVA) | payer MEDICARE, OTHER, SELFPAY | PROVIDERS: PCP Nurse Practitioner Family; Visit Provider Specialist | DX: M75.01 Adhesive capsulitis of right shoulder (principal) | CPT/HCPCS: 20610; 99213; J1100; J2795; J3301 ==

== ENCOUNTER 2022-11-26 11:53 | Outpatient (RCR) | payer MEDICARE, OTHER, SELFPAY | END 2022-12-15 23:59 | disposition home or self-care (01) | LOC: SPT 11:53 | PROVIDERS: PCP Family Medicine; Visit Provider Specialist | DX: M75.01 Adhesive capsulitis of right shoulder (principal) | CPT/HCPCS: 97110; 97161 ==

== ENCOUNTER 2023-09-09 12:01 | Outpatient (CLI) | payer MEDICARE, OTHER, SELFPAY | END 2023-09-09 12:02 | disposition home or self-care (01) | LOC: LAB 12:02 | PROVIDERS: PCP Family Medicine; Visit Provider Urology | DX: C61 Malignant neoplasm of prostate (principal) | CPT/HCPCS: 36415; 84153 ==

== ENCOUNTER 2024-05-07 22:35 | Emergency (ER) | payer MEDICARE, OTHER, SELFPAY ==
[2024-05-07 22:56] VITALS: BP 135/83; PULSE 87; RESP 16; TEMP 36.7; O2SAT 96
--- NOTE | 2024-05-07 23:02 | ECG_ITS ---
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 Measurements Intervals [place] Rate: 86 P: 52 [place]: 127 QRS: 20 QRSD: 92 T: 46 QT: 344 QTc: 413 Interpretive Statements SINUS RHYTHM Compared to ECG 07/18/2021 11:49:51 Myocardial infarct finding no longer present Electronically Signed On 05-08-2024 19:23:14 TECHNICAL RECRUITER by Emmanuel Rodrigues M.D. [id number]
[2024-05-08 00:22] LABS: Add Urine Microscopic? YES; Bacteria Urine None Seen /hpf; Bilirubin Urine Negative (Negative); Blood Urine 3+ (Negative); Glucose Urine UA Negative (Normal); Hyaline Casts Urine 0-4 /lpf; Ketones Urine Trace (Negative); Leukocyte Esterase Urine 2+ (Negative); Nitrate Urine Negative (Negative); Protein Urine 2+ (Negative); Specific Gravity, Urine 1.024 (1.005-1.030); Squamous Epithelial Cell Urine 0-5 /hpf (0-5); Universal Test for UA Present (0); Urine Appearance Cloudy (CLEAR); Urine Color Yellow (Yellow); WBC Urine >100 /hpf (0-5); pH Urine 5.5 (5-7)
[2024-05-08 00:39] LABS: Add Urine Culture? Yes; RBC Urine TOO NUMEROUS TO CNT /hpf (0-2)
--- NOTE | 2024-05-09 16:13 | PC.NURSE ---
Called pt regarding LWBS on 05/07/24. He followed up with his PCP and is being treated currently. I confirmed they ran a urinalysis and he said yes.
== END 2024-05-08 00:58 | disposition left against medical advice (07) ==
LOC: ER 22:38
PROVIDERS: Emergency Medicine; Emergency Provider Family Medicine; PCP Family Medicine
DX: Z53.21 Procedure and treatment not carried out due to patient leaving prior to being seen by health care provider (principal)
CPT/HCPCS: 81001; 87086; 93005; 99284